=== PATIENT | female | born 1945 | race Two or more races ===

== ENCOUNTER 2017-11-17 10:31 | Outpatient (CLI) | payer MEDICARE, MEDICAID ==
[~2017-11-17 10:31] MED LIST: MECLIZINE HCL25 MG ORAL; UNOBMED
--- NOTE | 2017-11-17 18:12 | Diagnostic Imaging Report ---
Indication: Pain, sinusitis Technique: CT maxillofacial was performed utilizing automated exposure control without intravenous contrast material. Axial and coronal images were generated. CT dose: Total DLP 524.52 mGycm; CTDI vol 28.19 mGy Comparison: None. Correlation made to noncontrast CT of the head 02/06/2015 Findings: No acute fracture is identified. The mandible, midface and nasal bones are intact. The orbits are unremarkable. Paranasal there is an air-fluid level in the right maxillary sinus. There is mild mucosal thickening in some ethmoid air cells. Remainder the visualized paranasal sinuses are clear. Mastoid air cells are clear The nasal septum is midline. The maxilla is edentulous, possibly postoperative in etiology. Visualized intracranial compartment is unremarkable there is mild degenerative change of the visualized cervical spine. IMPRESSION: Mild paranasal sinus disease with small air-fluid level in the right maxillary sinus. Edentulous maxilla No acute facial fracture. [place] [facility] [place] [employer] and the scans are performed using protocols designed to limit radiation exposure to as low as reasonably achievable to attain images of sufficient resolution adequate for diagnostic evaluation.
== END 2017-11-17 12:31 | disposition home or self-care (01) ==
LOC: CAT 10:31
DX: J32.9 Chronic sinusitis, unspecified (principal)
CPT/HCPCS: 70486

== ENCOUNTER 2018-05-16 12:17 | Outpatient (CLI) | payer MEDICARE, MEDICAID ==
--- NOTE | 2018-05-16 13:59 | Diagnostic Imaging Report ---
Indication: Cough Comparison: 02/06/2015 2 views of the chest obtained. Findings: Cardiomediastinal silhouette and pulmonary vascularity are within normal limits for age. The diaphragmatic contour is smooth and costophrenic angles are sharp. No pleural effusions are identified. The bones are osteopenic. There are surgical clips in the right axilla. Impression: No acute disease
== END 2018-05-16 14:17 | disposition home or self-care (01) ==
LOC: RAD 12:17
DX: Z01.818 Encounter for other preprocedural examination (principal); R05 Cough
CPT/HCPCS: 71046